=== PATIENT | male | born 2000 | race Caucasian/White ===

== ENCOUNTER 2021-03-01 08:27 | Day surgery (SDC) | payer OTHER ==
[~2021-03-01] VITALS: Ht 190.5 cm; Wt 97.2 kg
[2021-03-01 08:37] VITALS: BP 134/81; PULSE 85; TEMP 97.4
[2021-03-01] MEDS ORDERED: BENTYL 10MG10 MG/CAP (09:06)
[2021-03-01 09:50] VITALS: BP 96/75; PULSE 66; TEMP 97.7
--- NOTE | 2021-03-01 09:50 | NUR ---
PATIENT CAME BACK FROM ENDO SUITE ON CART AND SUCCESSFULY AMBULATED TO CHAIR IN THE ROOM. GAIT WAS UNSTEADY. VITALS OBTAINED. WARM BLANKET GIVEN. PATIENT WAS ORIENTED BUT DROWSY. CALL RECINOS IS WIHTIN REACH. VERBALIZED UNDERSTANDING.
[2021-03-01 10:05] VITALS: BP 113/79; PULSE 73
--- NOTE | 2021-03-01 10:05 | NUR ---
PATIENT WAS SITTING UP IN CHAIR. ALERT AND ORIENTED X3. ASKED FOR ICE WATER AND JELLO. VITALS OBTAINED. STATED HE IS EXCITED FOR DISCHARGE TO HAVE LUNCH WITH FRIEND. IV DISCONTINUED PER PATIENT REQUEST. CALL RECINOS WITHIN REACH.
[2021-03-01 10:20] VITALS: BP 113/79; PULSE 64
--- NOTE | 2021-03-01 10:20 | NUR ---
PATIENT FINISHED JELLO AND ICE WATER. TOLERATED WELL. NO ISSUES. DISCHARGE INFORMATION GIVEN TO PATIENT AND REVIEWED WITH RN. VERBALIZED UNDERSTANDING. CALL RECINOS WITHIN REACH. VITALS OBTAINED AND CONTINUE TO BE STABLE. PATIENT IS TO GET DRESSED AT THIS TIME TO PREPARE FOR ESCORT.
--- NOTE | 2021-03-01 10:35 | NUR ---
PATIENT ESCORTED VIA WHEELCHAIR TO FRONT OF FACILITY. TRANSFERRED INTO THE CARE OF HIS FRIEND, WHO IS A RESPONSIBLE ADULT AND DRIVING . PATIENT HAS HIS BELONGINGS AND DISCHARGE INFORMATION. NO FURTHER QUESTIONS/CONCERNS.
== END 2021-03-01 10:35 | disposition home or self-care (01) ==
LOC: SDCO 08:27
DX: R10.84 Generalized abdominal pain (principal); R19.7 Diarrhea, unspecified; Z20.822 Contact with and (suspected) exposure to COVID-19
CPT/HCPCS: J2704; J7120